=== PATIENT | male | born 1950 | race Caucasian/White ===

== ENCOUNTER → 2023-06-03 13:44 | Outpatient (BNVA) | payer OTHER, SELFPAY | PROVIDERS: Visit Provider Physician Assistant | DX: S39.012A Strain of muscle, fascia and tendon of lower back, initial encounter (principal); S76.312A Strain of muscle, fascia and tendon of the posterior muscle group at thigh level, left thigh, initial encounter; X50.0XXA Overexertion from strenuous movement or load, initial encounter | CPT/HCPCS: 99203 ==

== ENCOUNTER → 2023-06-09 08:27 | Outpatient (BNVA) | payer OTHER, SELFPAY | PROVIDERS: Visit Provider Physician Assistant | DX: S39.012A Strain of muscle, fascia and tendon of lower back, initial encounter (principal); X50.0XXA Overexertion from strenuous movement or load, initial encounter | CPT/HCPCS: 99215 ==

== ENCOUNTER → 2023-06-19 08:32 | Outpatient (BNVA) | payer OTHER, SELFPAY | PROVIDERS: Visit Provider Physician Assistant | DX: M54.42 Lumbago with sciatica, left side (principal) | CPT/HCPCS: 99215 ==

== ENCOUNTER → 2023-07-03 09:28 | Outpatient (BNVA) | payer OTHER, SELFPAY | PROVIDERS: Visit Provider Physician Assistant | DX: S39.012D Strain of muscle, fascia and tendon of lower back, subsequent encounter (principal); S76.312D Strain of muscle, fascia and tendon of the posterior muscle group at thigh level, left thigh, subsequent encounter; X50.0XXD Overexertion from strenuous movement or load, subsequent encounter | CPT/HCPCS: 99213 ==

== ENCOUNTER 2023-07-14 06:24 | Outpatient (REF) | payer OTHER, SELFPAY ==
--- NOTE | ~2023-07-14 | MR_ITS ---
EXAMINATION: MR LUMBAR SPINE WITHOUT CONTRAST CLINICAL INFORMATION: Persistent left lower extremity radicular symptoms, numbness. COMPARISON: None TECHNIQUE: MRI of the lumbar spine was obtained using routine sequences without contrast. FINDINGS: Chronic compression fractures seen at L1 with 60% height loss at L2 with 35% height loss. Edematous simply changes are seen at the L1-L2 level. There is mild anterolisthesis of L5 on S1. The distal spinal cord appears normal. Conus medullaris terminates normally at the L1-L2 level. The visualized paraspinal muscles and intra-abdominal and pelvic contents are within normal limits. SPINAL LEVELS: T11-T12: Disc bulging asymmetric towards the right with facet arthropathy resulting in severe right neural foraminal stenosis and mild spinal canal stenosis. L1-L2: Disc bulging with ligamentum flavum infolding and mild facet arthropathy. Mild spinal canal stenosis and moderate to severe left neural foraminal stenosis. L2-L3: Disc bulging with ligamentum flavum infolding, facet arthropathy, and dorsal epidural lipomatosis resulting in moderate spinal canal stenosis and mild bilateral neural foraminal stenosis. L3-L4: Disc bulging with ligamentum flavum infolding moderate facet arthropathy resulting in mild to moderate spinal canal stenosis and bilateral subarticular stenosis with compression of the traversing L4 nerve roots. Mild bilateral neural foraminal stenosis. L4-L5: Disc bulging and left subarticular protrusion resulting in compression of the traversing left L5 nerve root in the subarticular zone. Moderate facet arthropathy ligamentum flavum infolding. Moderate spinal canal stenosis. Mild to moderate right and mild left neural foraminal stenosis. L5-S1: Disc bulging with ligamentum flavum infolding and severe facet arthropathy resulting in bilateral subarticular stenosis with compression of the traversing S1 nerve roots. Moderate left and moderate to severe right neural foraminal stenosis with compression of the exiting right L5 nerve root. MR/MR lumbar spine wo con IMPRESSION: 1. Moderate to severe multilevel degenerative spondylosis. 2. Chronic compression fractures at L1 and L2. 3. Varying degrees of spinal canal and neural foraminal stenosis are detailed above. Spinal canal stenosis appears moderate at L2-L3 and L4-L5. At L3-L4 there is left subarticular protrusion compressing the traversing left L4 nerve root.
== END 2023-07-14 06:25 | disposition home or self-care (01) ==
LOC: HO.MRI 06:24
PROVIDERS: Visit Provider Internal Medicine
DX: M54.16 Radiculopathy, lumbar region (principal); M54.6 Pain in thoracic spine; R20.0 Anesthesia of skin
CPT/HCPCS: 72148

== ENCOUNTER → 2023-07-14 13:33 | Outpatient (BNVA) | payer OTHER, SELFPAY | PROVIDERS: Visit Provider Physician Assistant Medical | DX: M54.42 Lumbago with sciatica, left side (principal) | CPT/HCPCS: 99213 ==

== ENCOUNTER → 2023-07-17 10:19 | Outpatient (BNVA) | payer OTHER, SELFPAY | PROVIDERS: Visit Provider Physician Assistant | DX: S34.21XD Injury of nerve root of lumbar spine, subsequent encounter (principal); X50.0XXD Overexertion from strenuous movement or load, subsequent encounter | CPT/HCPCS: 99214 ==

== ENCOUNTER → 2023-07-31 09:39 | Outpatient (BNVA) | payer OTHER, SELFPAY | PROVIDERS: Visit Provider Physician Assistant | DX: S34.104D Unspecified injury to L4 level of lumbar spinal cord, subsequent encounter (principal); X50.0XXD Overexertion from strenuous movement or load, subsequent encounter | CPT/HCPCS: 99213 ==